=== PATIENT | female | born 1995 | race Caucasian/White ===

== ENCOUNTER → 2018-12-10 07:08 | Outpatient (CLI) | payer MEDICARE, MEDICAID, SELFPAY ==
--- NOTE | 2018-12-10 07:10 | DI.US.S_ITS ---
PROCEDURE: US OB >= 14 WEEKS FETUS INDICATIONS: ANATOMY OUTSIDE/PRIOR DATING DATA: Last menstrual period (LMP): Unknown. LMP-based estimated date of delivery (SONIA): Unknown. First dating scan (date and location): 09/05/2018. Estimated date of delivery (SONIA) from first dating scan: 05/01/2019. TECHNIQUE: Real-time scanning was performed of the fetus, with image documentation and biometric measurements. COMPARISON: Ultrasound 09/05/2018. FINDINGS: General: A single living intrauterine gestation is present. Presentation: Vertex, variable. Placenta: Placental position is anterior, without previa. Amniotic fluid index: 16.2 cm, normal range is 5-24 cm. heart rate: 139 beats per minute. Maternal cervical canal: 3.5 cm long. Normal lower limit is 2.5 cm. biometrics: Biparietal diameter: 4.9 cm. 20 weeks 6/7 days. Head circumference: 18.2 cm. 20 weeks 4/7 days. Abdominal circumference: 15.5 cm. 20 weeks 5/7 days. Femur length: 3.1 cm. 19 weeks 5/7 days. Estimated gestational age from initial scan: 19 weeks 5/7 days. Composite gestational age from present scan: 20 weeks 3/7 days Estimated weight and percentile: 345 g. 79th percentile Measurement variability for biometric dating: +/- 7 days from 14 weeks to 15 weeks 6 days gestation, +/- 10 days from 16 weeks to 21 weeks 6 days gestation, +/- 2 weeks from 22 weeks to 27 weeks 6 days gestation, +/- 3 weeks for 28 weeks gestation or later. weight reference: 4500 g or EFW >90/95% is considered macrosomia or large for gestational age. EFW <10% is small for gestational age. EFW 5% or less is considered intra-uterine growth restriction. Anatomic survey: Neuro: Ventricles are non-dilated at less than 10 mm. Cisterna magna is normal at 3-11 mm. Cerebellum is normal in size and morphology. Nuchal skin fold: Normal at less than 6 mm between 14-21 weeks gestational age. Face: Nose and lips, facial profile are normal. Spine: No evidence for spina bifida. Heart: 4-chambered heart is present, with normal ventricular outflow tracts. Diaphragm: Diaphragm is intact. Stomach: Left-sided stomach is present. Kidneys: Prominent renal pelvicies. Right measures 4.1 mm. The left measures 3 mm. Normal is less than 5 mm in 2nd trimester, less than 7 mm in 3rd trimester. Cord: 3-vessel cord has orthotopic insertion. Bladder: Normal in size. Extremities: All 4 extremities identified. IMPRESSION: 1. Esqueda living intrauterine at 20 weeks and 3/7 days based on today's ultrasound. This is concordant with the initial assessment. 2. Normal placenta and amniotic fluid. 3. Prominent bilateral renal pelvis. Followup ultrasound is recommended. Otherwise normal anatomic survey. Dictated by: Stevan Nunez M.D. on 12/10/2018 at 11:19 Approved by: Stevan Nunez M.D. on 12/10/2018 at 11:59
== END ==
PROVIDERS: PCP Family Medicine; Visit Provider Family Medicine
DX: Z34.82 Encounter for supervision of other normal pregnancy, second trimester (principal); Z3A.20 20 weeks gestation of pregnancy
CPT/HCPCS: 76811

== ENCOUNTER → 2019-02-04 08:34 | Outpatient (CLI) | payer MEDICARE, MEDICAID, SELFPAY ==
--- NOTE | 2019-02-04 08:38 | DI.US.S_ITS ---
PROCEDURE: US OB LIMITED INDICATIONS: FOLLOW UP RENAL PELVIECTASIS OUTSIDE/PRIOR DATING DATA: First dating scan (date and location): 09/05/18. Estimated date of delivery (SONIA) from first dating scan: 05/01/19. TECHNIQUE: Real-time scanning was performed of the fetus, with image documentation. Endovaginal scanning: Not needed for this study COMPARISON: [facility], [facility], 12/26/2014, 12:33. [facility], 12/11/2014, 14:07. FINDINGS: A single living intrauterine gestation is present. Presentation: Breech. Placenta: Placental position is anterior, without previa. Amniotic fluid index: 13.8 cm, normal range is 5-24 cm. heart rate: 133 beats per minute. Maternal cervical canal: 3.5 cm long. Normal lower limit is 2.5 cm. Estimated gestational age from initial scan: 27 weeks 5 days. Completion anatomic survey with normal size of the renal pelvis bilaterally. IMPRESSION: Normal size of the renal pelvis bilaterally. The delivery date is projected to be centered on 05/01/19. Dictated by: Melvin Da Silva M.D. on 02/04/2019 at 10:16 Approved by: Melvin Da Silva M.D. on 02/04/2019 at 10:18
[2019-02-04 09:21] LABS: Add Manual Diff / Slide Review NO; Basophils Absolute Auto 0 /uL (0-100); Basophils Percent Auto 0.5 % (0-2); Eosinophils Absolute Auto 300 /uL (0-450); Eosinophils Percent Auto 3.4 % (2-4); Hematocrit 33.6 % (36-46); Hemoglobin 11.5 g/dL (12.0-16.0); Lymphocytes Absolute Auto 1800 /uL (1100-4500); Lymphocytes Percent Auto 18.9 % (25-40); Mean Corpuscular HGB Conc 34.2 % (30-36); Mean Corpuscular Hemoglobin 31.7 PG (26-34); Mean Corpuscular Volume 92.9 fL (80-100); Monocytes Absolute Auto 700 /uL (0-900); Neutrophils Absolute Auto 6800 /uL (1500-7000); Neutrophils Percent Auto 70.2 % (50-75); Platelet Count 218 X10^3/uL (150-400); Red Blood Cell Count 3.62 X10^6/uL (4.0-5.2); Red Cell Distribution Width 13.9 % (11.6-14.8); White Blood Cell Count 9.7 X10^3/uL (4.5-11.0)
[2019-02-04 10:32] LABS: Appearance Urine UA CLEAR; Bilirubin Urine UA NEGATIVE (NEGATIVE); Color Urine UA YELLOW; Glucose Urine UA NEGATIVE (Negative); Ketones Urine UA NEGATIVE (NEGATIVE); Leukocyte Esterase Urine UA NEGATIVE (NEGATIVE); Nitrite Urine UA NEGATIVE (Negative); Occult Blood Urine UA NEGATIVE (Negative); Protein Urine UA TRACE (Negative); Urobilinogen Urine UA 0.2 E.U./dL (0.2)
[2019-02-04 10:36] LABS: pH Urine UA 6.5 (4.5-8.0)
[2019-02-04 11:28] LABS: GTT (PREG) 1 Hour PP 50gm Dose 204 mg/dL (76-139)
[2019-02-04 17:13] LABS: HIV 1 & 2 Ab/Ag 4th Gen Combo NEGATIVE (NEGATIVE); Hep C Virus Ab w/Reflex Quant NEGATIVE s/c (NEGATIVE); Hepatitis B Surface Antigen NEGATIVE s/c (NEGATIVE); Rubella Antibody IgG 15.4 IU/mL (>15)
[2019-02-06 14:15] LABS: Varicella IgG Antibody < 135.00 Index (< 135.00)
[2019-02-06 20:11] LABS: RPR Screen Nonreactive (Nonreactive)
== END ==
PROVIDERS: PCP Family Medicine; Visit Provider Family Medicine
DX: O26.832 Pregnancy related renal disease, second trimester (principal); N28.89 Other specified disorders of kidney and ureter; Z3A.27 27 weeks gestation of pregnancy
CPT/HCPCS: 36415; 76815; 80055; 81003; 82950; 86787; 86803; 86850; 86900; 86901; 87077; 87086; 87389

== ENCOUNTER 2019-03-11 14:05 | Outpatient (CLI) | payer MEDICARE, MEDICAID, SELFPAY ==
--- NOTE | 2019-03-11 14:12 | DI.US.S_ITS ---
PROCEDURE: US OB LIMITED INDICATIONS: XI OUTSIDE/PRIOR DATING DATA: Last menstrual period (LMP): Unknown. LMP-based estimated date of delivery (SONIA): Unknown. First dating scan (date and location): 09/05/2018 [facility]. Estimated date of delivery (SONIA) from first dating scan: 05/01/2019. TECHNIQUE: Real-time scanning was performed of the fetus, with image documentation. Endovaginal scanning: Not performed. COMPARISON: [facility], OB LIMITED, 02/04/2019, 9:08. FINDINGS: A single living intrauterine gestation is present. Presentation: Vertex. Placenta: Placental position is anterior, without previa. Amniotic fluid index: 12.5 cm cm, normal range is 5-24 cm. Deepest pocket 5.5 cm. heart rate: 135 beats per minute. Estimated gestational age from initial scan: 32 weeks 5 days. chest, stomach, kidneys, urinary bladder are unremarkable. IMPRESSION: 1. Esqueda living intrauterine at 32 weeks 5/7 days based on prior ultrasound. 2. Normal XI 12.5 cm. Normal placenta. Dictated by: Stevan Nunez M.D. on 03/11/2019 at 15:15 Approved by: Stevan Nunez M.D. on 03/11/2019 at 15:20
--- NOTE | 2019-03-11 15:04 | PM.OBTRLD ---
Visit Information Visit Information Date of evaluation: 03/11/19 Primary OB Provider: Radha Little Reason for Evaluation: Yes non-stress test Vital Signs Vital Signs: Temperature 36.2? blood pressure 109/67 heart rate 86 PFSH Medical History (Updated 03/11/19 @ 15:06 by Radha Little DO) Acne (Chronic ~2008) ADHD (Chronic ~2006) Anxiety (Chronic ~2011) Chronic back pain (Chronic ~2011) Depression (Chronic ~2011) Fibromyalgia (Chronic ~2018) Fractures (Resolved ~2015) History of bipolar disorder (Chronic ~2011) Lymphoma (Inactive ~2006) Post traumatic stress disorder (PTSD) (Chronic ~2011) Prediabetes (Chronic ~2018) Pulmonary fibrosis (Chronic ~2007) Suicide attempt (Acute) Surgical History Anesthesia (Resolved) History of ankle surgery (Resolved ~2015) History of hand surgery (Resolved ~2016) History of neck surgery (Resolved ~2006) Status post delivery Social History marital status: unmarried,living together Smoking Status: Former smoker alcohol intake: former substance use type: marijuana and other (past use of mushrooms, meth, heroin, cocaine, everything) Evaluation Evaluation Baseline heart rate: 130 Variability: Moderate (11-25) monitor accelerations: Present monitor decelerations: Absent Category of Tracing: I Diagnosis, Plan/Disposition Final Diagnosis (1) 32 weeks gestation of : Current Visit: Yes Status: Acute (2) Gestational diabetes: Current Visit: Yes Status: Acute Plan/Disposition Plan: 23-year-old at 32 weeks gestation with uncontrolled gestational diabetes. Starting metformin today. NST reactive today. XI 12.6. Needs twice weekly NST with weekly XI. Follow-up as scheduled in clinic. OB Disposition: home
== END 2019-03-11 15:15 | disposition home or self-care (01) ==
LOC: OB 03-12 15:20
PROVIDERS: PCP Family Medicine; Visit Provider Family Medicine
DX: O24.419 Gestational diabetes mellitus in pregnancy, unspecified control (principal); Z3A.32 32 weeks gestation of pregnancy
CPT/HCPCS: 59025; 76815; G0378; G0379

== ENCOUNTER 2019-03-14 12:56 | Outpatient (CLI) | payer MEDICARE, MEDICAID, SELFPAY ==
--- NOTE | 2019-03-14 13:29 | DI.US.S_ITS ---
PROCEDURE: US OB LIMITED INDICATIONS: XI TECHNIQUE: Real-time scanning was performed of the fetus, with image documentation. COMPARISON: [facility], , US OB LIMITED, 03/11/2019, 14:32. [facility], , US OB LIMITED, 02/04/2019, 9:08. [facility] Ultrasound, US, US OB < 14 WEEKS + OB TRANSVAG, 09/05/2018, 13:46. FINDINGS: A single living intrauterine gestation is present. Presentation: Cephalic Placenta: Placental position is anterior Amniotic fluid index: 16.4 cm heart rate: 140 beats per minute. Maternal cervical canal: Not evaluated Estimated gestational age from initial scan: 33 weeks 1 day. IMPRESSION: 1. Single intrauterine . 2. XI: 16.4 cm. Dictated by: Jr Harrell M.D. on 03/14/2019 at 14:22 Approved by: Jr Harrell M.D. on 03/14/2019 at 14:23
--- NOTE | 2019-03-14 14:13 | PM.OBTRLD ---
Visit Information Visit Information Date of evaluation: 03/14/19 Primary OB Provider: Radha Little Reason for Evaluation: Yes non-stress test non-stress test reason: diabetes Vital Signs Vital Signs: Temperature 36.4? blood pressure 122/60 heart rate 89 PFSH Medical History (Updated 03/14/19 @ 17:06 by Radha Little DO) Acne (Chronic ~2008) ADHD (Chronic ~2006) Anxiety (Chronic ~2011) Chronic back pain (Chronic ~2011) Depression (Chronic ~2011) Fibromyalgia (Chronic ~2018) Fractures (Resolved ~2015) History of bipolar disorder (Chronic ~2011) Lymphoma (Inactive ~2006) Post traumatic stress disorder (PTSD) (Chronic ~2011) Prediabetes (Chronic ~2018) Pulmonary fibrosis (Chronic ~2007) Suicide attempt (Acute) Surgical History Anesthesia (Resolved) History of ankle surgery (Resolved ~2015) History of hand surgery (Resolved ~2016) History of neck surgery (Resolved ~2006) Status post delivery Social History marital status: unmarried,living together Smoking Status: Former smoker alcohol intake: former substance use type: marijuana and other (past use of mushrooms, meth, heroin, cocaine, everything) Evaluation Evaluation Baseline heart rate: 130 Variability: Moderate (11-25) monitor accelerations: Present monitor decelerations: Absent Category of Tracing: I Diagnosis, Plan/Disposition Final Diagnosis (1) Gestational diabetes: Current Visit: No Status: Acute (2) 33 weeks gestation of : Current Visit: No Status: Acute Plan/Disposition Plan: Reactive NST done for GDM A2. XI 16. Continue NST twice a week in XI weekly. OB Disposition: home
== END 2019-03-14 14:14 | disposition home or self-care (01) ==
LOC: OB 03-15 11:47
PROVIDERS: PCP Family Medicine; Visit Provider Family Medicine
DX: O24.415 Gestational diabetes mellitus in pregnancy, controlled by oral hypoglycemic drugs (principal); Z3A.33 33 weeks gestation of pregnancy
CPT/HCPCS: 59025; 76815; G0378; G0379

== ENCOUNTER 2019-03-18 13:22 | Outpatient (CLI) | payer MEDICARE, MEDICAID, SELFPAY ==
--- NOTE | 2019-03-18 13:33 | DI.US.S_ITS ---
PROCEDURE: US OB LIMITED INDICATIONS: XI OUTSIDE/PRIOR DATING DATA: Last menstrual period (LMP): Unknown. LMP-based estimated date of delivery (SONIA): Unknown. First dating scan (date and location): 09/05/2018 [facility]. Estimated date of delivery (SONIA) from first dating scan: 05/01/2019. TECHNIQUE: Real-time scanning was performed of the fetus, with image documentation. COMPARISON: [facility], OB LIMITED, 03/11/2019, 14:32. [facility], OB LIMITED, 03/14/2019, 13:46. FINDINGS: A single living intrauterine gestation is present. Presentation: Vertex. Placenta: Placental position is anterior, without previa. Amniotic fluid index: 15.9 cm, (previously measured at 16.4 cm) normal range is 5-24 cm. Largest pocket 4.8 cm. heart rate: 130 beats per minute. Maternal cervical canal: 3.7 cm long. Normal lower limit is 2.5 cm. No funneling. Estimated gestational age from initial scan: 33 weeks 5 days. IMPRESSION: 1. Esqueda living intrauterine at 33 weeks 5/7 days based on prior ultrasound. 2. Normal placenta and amniotic fluid. XI 15.9 cm is not significantly changed. Dictated by: Stevan Nunez M.D. on 03/18/2019 at 16:57 Approved by: Stevan Nunez M.D. on 03/18/2019 at 17:01
--- NOTE | 2019-03-18 14:01 | PM.OBTRLD ---
Visit Information Visit Information Date of evaluation: 03/18/19 Primary OB Provider: Radha Little Reason for Evaluation: Yes non-stress test non-stress test reason: diabetes Vital Signs Vital Signs: Temperature 36.1? blood pressure 118/68 heart rate 90 PFS Medical History (Updated 03/18/19 @ 14:03 by Radha Little DO) Acne (Chronic ~2008) ADHD (Chronic ~2006) Anxiety (Chronic ~2011) Chronic back pain (Chronic ~2011) Depression (Chronic ~2011) Fibromyalgia (Chronic ~2018) Fractures (Resolved ~2015) History of bipolar disorder (Chronic ~2011) Lymphoma (Inactive ~2006) Post traumatic stress disorder (PTSD) (Chronic ~2011) Prediabetes (Chronic ~2018) Pulmonary fibrosis (Chronic ~2007) Suicide attempt (Acute) Surgical History Anesthesia (Resolved) History of ankle surgery (Resolved ~2015) History of hand surgery (Resolved ~2016) History of neck surgery (Resolved ~2006) Status post delivery Social History marital status: unmarried,living together Smoking Status: Former smoker alcohol intake: former substance use type: marijuana and other (past use of mushrooms, meth, heroin, cocaine, everything) Evaluation Evaluation Baseline heart rate: 130 Variability: Moderate (11-25) monitor accelerations: Present monitor decelerations: Absent Diagnosis, Plan/Disposition Final Diagnosis (1) 33 weeks gestation of : Current Visit: No Status: Acute (2) GDM, class A2: Current Visit: Yes Status: Acute Plan/Disposition Plan: Reactive NST for GDM A2. XI 15.5. Continue weekly XI and twice weekly NST.
== END 2019-03-18 15:14 | disposition home or self-care (01) ==
LOC: LABOR 15:07 → OB 03-21 09:55
PROVIDERS: PCP Family Medicine; Visit Provider Family Medicine
DX: O24.419 Gestational diabetes mellitus in pregnancy, unspecified control (principal); O99.333 Smoking (tobacco) complicating pregnancy, third trimester; Z3A.33 33 weeks gestation of pregnancy
CPT/HCPCS: 59025; 76815; G0378; G0379

== ENCOUNTER 2019-03-21 13:04 | Outpatient (CLI) | payer MEDICARE, MEDICAID, SELFPAY ==
--- NOTE | 2019-03-21 13:38 | PM.OBTRLD ---
Visit Information Visit Information Date of evaluation: 03/21/19 Primary OB Provider: Radha Little Reason for Evaluation: Yes non-stress test non-stress test reason: diabetes Vital Signs Vital Signs: Temperature 36.0? blood pressure 105/68 heart rate 93 PFSH Medical History (Updated 03/21/19 @ 13:51 by Radha Little DO) Acne (Chronic ~2008) ADHD (Chronic ~2006) Anxiety (Chronic ~2011) Chronic back pain (Chronic ~2011) Depression (Chronic ~2011) Fibromyalgia (Chronic ~2018) Fractures (Resolved ~2015) History of bipolar disorder (Chronic ~2011) Lymphoma (Inactive ~2006) Post traumatic stress disorder (PTSD) (Chronic ~2011) Prediabetes (Chronic ~2018) Pulmonary fibrosis (Chronic ~2007) Suicide attempt (Acute) Surgical History Anesthesia (Resolved) History of ankle surgery (Resolved ~2015) History of hand surgery (Resolved ~2016) History of neck surgery (Resolved ~2006) Status post delivery Social History marital status: unmarried,living together Smoking Status: Former smoker alcohol intake: former substance use type: marijuana and other (past use of mushrooms, meth, heroin, cocaine, everything) Evaluation Evaluation Baseline heart rate: 130 Variability: Moderate (11-25) monitor accelerations: Present monitor decelerations: Absent Diagnosis, Plan/Disposition Final Diagnosis (1) 34 weeks gestation of : Current Visit: Yes Status: Acute (2) GDM, class A2: Current Visit: No Status: Acute Plan/Disposition Plan: Reactive NST for GDM A2. Continue twice weekly NST and XI weekly. OB Disposition: home
== END 2019-03-21 13:56 | disposition home or self-care (01) ==
LOC: LABOR 13:19 → OB 03-22 09:54
PROVIDERS: Admitting Provider Family Medicine; PCP Family Medicine; Visit Provider Family Medicine
DX: O24.415 Gestational diabetes mellitus in pregnancy, controlled by oral hypoglycemic drugs (principal); Z3A.34 34 weeks gestation of pregnancy
CPT/HCPCS: 59025; G0378; G0379

== ENCOUNTER 2019-03-26 14:12 | Outpatient (CLI) | payer MEDICARE, MEDICAID, SELFPAY ==
--- NOTE | 2019-03-26 14:18 | DI.US.S_ITS ---
PROCEDURE: US OB LIMITED INDICATIONS: XI OUTSIDE/PRIOR DATING DATA: Last menstrual period (LMP): Unknown. LMP-based estimated date of delivery (SONIA): Not applicable. First dating scan (date and location): 09/05/18. Estimated date of delivery (SONIA) from first dating scan: 05/01/2019. TECHNIQUE: Real-time scanning was performed of the fetus, with image documentation. Endovaginal scanning: Deferred COMPARISON: [facility], OB LIMITED, 03/18/2019, 15:03. FINDINGS: A single living intrauterine gestation is present. Presentation: Vertex. Placenta: Placental position is anterior, without previa. Amniotic fluid index: 15.4 cm, normal range is 5-24 cm. deepest pocket is 5.4 cm. heart rate: 133 beats per minute. Maternal cervical canal: Not seen Estimated gestational age from initial scan: 34 weeks, 6 days. IMPRESSION: 1. Single living intrauterine in vertex presentation. 2. Amniotic fluid index is 15.4 cm and the deepest pocket is 5.4 cm. This is fairly stable compared to the prior study. Dictated by: Kae Mota M.D. on 03/26/2019 at 17:51 Approved by: Kae Mota M.D. on 03/26/2019 at 17:53
--- NOTE | 2019-03-26 15:05 | PM.OBTRLD ---
Visit Information Visit Information Date of evaluation: 03/26/19 Primary OB Provider: Radha Little Reason for Evaluation: Yes non-stress test non-stress test reason: diabetes Vital Signs Vital Signs: Temp 35.8 blood pressure 111/64 heart rate 96 PFSH Social History marital status: unmarried,living together Smoking Status: Former smoker alcohol intake: former substance use type: marijuana and other (past use of mushrooms, meth, heroin, cocaine, everything) Evaluation Evaluation Baseline heart rate: 130 Variability: Moderate (11-25) monitor accelerations: Present monitor decelerations: Absent Category of Tracing: I Diagnosis, Plan/Disposition Final Diagnosis (1) 34 weeks gestation of : Current Visit: No Status: Acute (2) GDM, class A2: Current Visit: No Status: Acute Plan/Disposition Plan: Reactive NST for GDM A2. XI 15.3. Continue twice weekly NST and XI weekly. OB Disposition: home
== END 2019-03-26 15:42 | disposition home or self-care (01) ==
LOC: LABOR 14:31 → OB 04-22 09:40
PROVIDERS: PCP Family Medicine; Visit Provider Family Medicine
DX: O24.419 Gestational diabetes mellitus in pregnancy, unspecified control (principal); Z3A.34 34 weeks gestation of pregnancy
CPT/HCPCS: 59025; 76815; G0378; G0379

== ENCOUNTER 2019-03-28 13:03 | Outpatient (CLI) | payer MEDICARE, MEDICAID, SELFPAY ==
--- NOTE | 2019-03-28 13:59 | PM.OBTRLD ---
Visit Information Visit Information Date of evaluation: 03/28/19 Primary OB Provider: Radha Little Reason for Evaluation: Yes non-stress test non-stress test reason: diabetes Vital Signs Vital Signs: Temperature 36.2? blood pressure 115/68 heart rate 99 PFSH Social History marital status: unmarried,living together Smoking Status: Former smoker alcohol intake: former substance use type: marijuana and other (past use of mushrooms, meth, heroin, cocaine, everything) Evaluation Evaluation Baseline heart rate: 130 Variability: Moderate (11-25) monitor accelerations: Present monitor decelerations: Absent Diagnosis, Plan/Disposition Final Diagnosis (1) 35 weeks gestation of : Current Visit: Yes Status: Acute (2) GDM, class A2: Current Visit: No Status: Acute Plan/Disposition Plan: Reactive NST done for GDM A2. Continue twice weekly NST and once weekly XI. OB Disposition: home
== END 2019-03-28 14:00 | disposition home or self-care (01) ==
LOC: LABOR 14:14 → OB 03-29 09:19
PROVIDERS: PCP Family Medicine; Visit Provider Family Medicine
DX: O24.419 Gestational diabetes mellitus in pregnancy, unspecified control (principal); Z3A.35 35 weeks gestation of pregnancy
CPT/HCPCS: 59025; G0378; G0379

== ENCOUNTER 2019-04-04 13:02 | Outpatient (CLI) | payer MEDICARE, MEDICAID, SELFPAY ==
--- NOTE | 2019-04-04 13:20 | DI.US.S_ITS ---
PROCEDURE: US OB >= 14 WEEKS FETUS INDICATIONS: XI OUTSIDE/PRIOR DATING DATA: Last menstrual period (LMP): Not available. LMP-based estimated date of delivery (SONIA): Not available. First dating scan (date and location): 09/05/18. Estimated date of delivery (SONIA) from first dating scan: 05/01/19. TECHNIQUE: Real-time scanning was performed of the fetus, with image documentation and biometric measurements. Endovaginal scanning: Not needed COMPARISON: [facility], OB >= 14 WEEKS FETUS, 12/10/2018, 7:23. FINDINGS: General: A single living intrauterine gestation is present. Presentation: Vertex. Placenta: Placental position is anterior, without previa. Amniotic fluid index: 16.3 cm, normal range is 5-24 cm. heart rate: 143 beats per minute. IMPRESSION: Limited study at clinician request, for XI. The XI is currently normal at 16.3 cm. The delivery date is projected to be centered on 05/01/19. Dictated by: Melvin Da Silva M.D. on 04/04/2019 at 16:02 Approved by: Melvin Da Silva M.D. on 04/04/2019 at 16:04
--- NOTE | 2019-04-04 17:05 | PM.OBTRLD ---
Visit Information Visit Information Date of evaluation: 04/04/19 Primary OB Provider: Radha Little Reason for Evaluation: Yes non-stress test non-stress test reason: diabetes Vital Signs Vital Signs: Temperature 36.1? blood pressure 105/67 heart rate 83 PFSH Social History marital status: unmarried,living together Smoking Status: Former smoker alcohol intake: former substance use type: marijuana and other (past use of mushrooms, meth, heroin, cocaine, everything) Evaluation Evaluation Baseline heart rate: 130 Variability: Moderate (11-25) monitor accelerations: Present monitor decelerations: Absent Diagnosis, Plan/Disposition Final Diagnosis (1) 36 weeks gestation of : Current Visit: No Status: Acute (2) GDM, class A2: Current Visit: No Status: Acute Plan/Disposition Plan: Reactive NST for GDM A2. XI 16.3. Continue weekly XI in twice weekly NST. OB Disposition: home
== END 2019-04-04 13:51 | disposition home or self-care (01) ==
LOC: OB 04-05 11:19
PROVIDERS: PCP Family Medicine; Visit Provider Family Medicine
DX: O24.415 Gestational diabetes mellitus in pregnancy, controlled by oral hypoglycemic drugs (principal); Z3A.36 36 weeks gestation of pregnancy
CPT/HCPCS: 59025; 76811; G0378; G0379

== ENCOUNTER 2019-04-08 12:50 | Outpatient (CLI) | payer MEDICARE, MEDICAID, SELFPAY ==
--- NOTE | 2019-04-08 13:10 | PM.OBTRLD ---
Visit Information Visit Information Date of evaluation: 04/08/19 Primary OB Provider: Radha Little Reason for Evaluation: Yes non-stress test non-stress test reason: diabetes Vital Signs Vital Signs: Temperature 35.9? blood pressure 108/72 heart rate 96 PFSH Social History marital status: unmarried,living together Smoking Status: Former smoker alcohol intake: former substance use type: marijuana and other (past use of mushrooms, meth, heroin, cocaine, everything) Evaluation Evaluation Baseline heart rate: 130 Variability: Moderate (11-25) monitor accelerations: Present monitor decelerations: Absent Category of Tracing: I Diagnosis, Plan/Disposition Final Diagnosis (1) 36 weeks gestation of : Current Visit: No Status: Acute (2) GDM, class A2: Current Visit: No Status: Acute Plan/Disposition Plan: Reactive NST for GDM A2. Ultrasound later this week for growth which will include XI for the week. OB Disposition: home
== END 2019-04-08 13:30 | disposition home or self-care (01) ==
LOC: OB 04-09 11:22
PROVIDERS: PCP Family Medicine; Referring Provider Family Medicine; Visit Provider Family Medicine
DX: O24.419 Gestational diabetes mellitus in pregnancy, unspecified control (principal); Z3A.36 36 weeks gestation of pregnancy
CPT/HCPCS: 59025; 87653; G0378; G0379

== ENCOUNTER → 2019-04-08 13:45 | Outpatient (CLI) | payer MEDICARE, MEDICAID, SELFPAY ==
[2019-04-09 13:36] LABS: Strep Grp B PCR NEG for Grp B Strep
== END ==
PROVIDERS: PCP Family Medicine; Visit Provider Family Medicine
DX: Z3A.36 36 weeks gestation of pregnancy (principal)
CPT/HCPCS: 87653

== ENCOUNTER → 2019-04-11 13:07 | Outpatient (CLI) | payer MEDICARE, MEDICAID, SELFPAY ==
--- NOTE | 2019-04-11 13:09 | DI.US.S_ITS ---
PROCEDURE: US OB LIMITED INDICATIONS: EFW; GESTATIONAL DIABETES OUTSIDE/PRIOR DATING DATA: Last menstrual period (LMP): Not available. LMP-based estimated date of delivery (SONIA): Not available. First dating scan (date and location): 09/05/18. Estimated date of delivery (SONIA) from first dating scan: 05/01/19. TECHNIQUE: Real-time scanning was performed of the fetus, with image documentation and biometric measurements. Endovaginal scanning: Not needed COMPARISON: [facility], OB LIMITED, 03/26/2019, 14:38. [facility], OB LIMITED, 03/18/2019, 15:03. FINDINGS: General: A single living intrauterine gestation is present. Presentation: Vertex. Placenta: Placental position is right anterior, without previa. Amniotic fluid index: 19.9 cm, normal range is 5-24 cm. heart rate: 140 beats per minute. biometrics: Biparietal diameter: 9.5 cm, 38 weeks 4 days Head circumference: 35.3 cm, 41 weeks 1 day Abdominal circumference: 35.4 cm, 39 weeks 2 days Femur length: 7.4 cm, 37 weeks 5 days Estimated gestational age from initial scan: 37 weeks 1 day Composite gestational age from present scan: 39 weeks 1 day Estimated weight and percentile: 3680 g, the upper 94th percentile Measurement variability for biometric dating: +/- 7 days from 14 weeks to 15 weeks 6 days gestation, +/- 10 days from 16 weeks to 21 weeks 6 days gestation, +/- 2 weeks from 22 weeks to 27 weeks 6 days gestation, +/- 3 weeks for 28 weeks gestation or later. weight reference: 4500 g or EFW >90/95% is considered macrosomia or large for gestational age. EFW <10% is small for gestational age. EFW 5% or less is considered intra-uterine growth restriction. Other: Not applicable. IMPRESSION: Current estimated weight is 3680 g, at the upper 94th percentile for current gestational age. Impending macrosomia. Dictated by: Melvin Da Silva M.D. on 04/11/2019 at 15:05 Approved by: Melvin Da Silva M.D. on 04/11/2019 at 15:08
== END ==
PROVIDERS: PCP Family Medicine; Referring Provider Family Medicine; Visit Provider Family Medicine
DX: O24.419 Gestational diabetes mellitus in pregnancy, unspecified control (principal); Z3A.39 39 weeks gestation of pregnancy
CPT/HCPCS: 76815

== ENCOUNTER 2019-04-15 10:38 | Outpatient (CLI) | payer MEDICARE, MEDICAID, SELFPAY ==
--- NOTE | 2019-04-15 10:49 | DI.US.S_ITS ---
PROCEDURE: US OB LIMITED INDICATIONS: XI OUTSIDE/PRIOR DATING DATA: Last menstrual period (LMP): Not available. LMP-based estimated date of delivery (SONIA): Not available. First dating scan (date and location): 09/05/18. Estimated date of delivery (SONIA) from first dating scan: 05/01/19.. TECHNIQUE: Real-time scanning was performed of the fetus, with image documentation. COMPARISON: [facility], OB LIMITED, 04/11/2019, 13:23. FINDINGS: A single living intrauterine gestation is present. Presentation: Vertex. Placenta: Placental position is anterior, without previa. Amniotic fluid index: 16.4 cm, normal range is 5-24 cm. heart rate: 135 beats per minute. Maternal cervical canal: Not well-seen. Estimated gestational age from initial scan: 37 weeks 5 days. IMPRESSION: Single living IUP redemonstrated and amniotic fluid index is normal. Dictated by: Stu Vargas [facility] Interpreted: Ni Rodrigues MD on 04/15/2019 at 16:10 Approved by: Ni Rodrigues MD, PhD on 04/15/2019 at 17:18
--- NOTE | 2019-04-15 11:46 | PM.OBTRLD ---
Visit Information Visit Information Date of evaluation: 04/15/19 Primary OB Provider: Radha Little Reason for Evaluation: Yes non-stress test non-stress test reason: diabetes (GDM A2) Vital Signs Vital Signs: Temperature 36.3? blood pressure 104/60 heart rate 82 PFSH Medical History (Updated 04/15/19 @ 12:03 by Radha Little DO) Acne (Chronic ~2008) ADHD (Chronic ~2006) Anxiety (Chronic ~2011) Chronic back pain (Chronic ~2011) Depression (Chronic ~2011) Fibromyalgia (Chronic ~2018) Fractures (Resolved ~2015) History of bipolar disorder (Chronic ~2011) Lymphoma (Inactive ~2006) Post traumatic stress disorder (PTSD) (Chronic ~2011) Prediabetes (Chronic ~2018) Pulmonary fibrosis (Chronic ~2007) Suicide attempt (Acute) Surgical History Anesthesia (Resolved) History of ankle surgery (Resolved ~2015) History of hand surgery (Resolved ~2016) History of neck surgery (Resolved ~2006) Status post delivery Family History Grandfather Cancer Diabetes mellitus Grandfather Liver damage Social History marital status: unmarried,living together Smoking Status: Former smoker alcohol intake: former substance use type: marijuana and other (past use of mushrooms, meth, heroin, cocaine, everything) Evaluation Evaluation Baseline heart rate: 120 Variability: Moderate (11-25) monitor accelerations: Present monitor decelerations: Absent Category of Tracing: I Diagnosis, Plan/Disposition Final Diagnosis (1) GDM, class A2: Current Visit: No Status: Acute (2) 37 weeks gestation of : Current Visit: No Status: Acute Plan/Disposition Plan: Reactive NST. XI 16.4. OB Disposition: home
== END 2019-04-15 11:56 | disposition home or self-care (01) ==
LOC: LABOR 11:42 → OB 04-16 08:12
PROVIDERS: PCP Family Medicine; Referring Provider Family Medicine; Visit Provider Family Medicine
DX: O24.419 Gestational diabetes mellitus in pregnancy, unspecified control (principal); Z3A.37 37 weeks gestation of pregnancy
CPT/HCPCS: 59025; 76815; G0378; G0379

== ENCOUNTER 2019-04-23 14:12 | Outpatient (CLI) | payer MEDICARE, MEDICAID, SELFPAY ==
--- NOTE | 2019-04-23 15:19 | PM.OBTRLD ---
Visit Information Visit Information Date of evaluation: 04/23/19 Primary OB Provider: Radha Little Reason for Evaluation: Yes non-stress test non-stress test reason: diabetes Vital Signs Vital Signs: T 97.6 BP 121/76 HR 90 PFSH Social History marital status: unmarried,living together Smoking Status: Former smoker alcohol intake: former substance use type: marijuana and other (past use of mushrooms, meth, heroin, cocaine, everything) Evaluation Evaluation Baseline heart rate: 125 Variability: Moderate (11-25) monitor accelerations: Present monitor decelerations: Absent Diagnosis, Plan/Disposition Final Diagnosis (1) 38 weeks gestation of : Current Visit: No Status: Acute (2) GDM, class A2: Current Visit: No Status: Acute Plan/Disposition Plan: Reative NST. scheduled in 2 days. OB Disposition: home
== END 2019-04-23 14:50 | disposition home or self-care (01) ==
LOC: OB 04-24 10:32
PROVIDERS: PCP Family Medicine; Referring Provider Family Medicine; Visit Provider Family Medicine
DX: O24.415 Gestational diabetes mellitus in pregnancy, controlled by oral hypoglycemic drugs (principal); Z3A.38 38 weeks gestation of pregnancy
CPT/HCPCS: 59025; G0378; G0379

== ENCOUNTER 2019-04-25 05:28 | Inpatient (IN) | payer MEDICARE, MEDICAID, SELFPAY ==
[2019-04-25] VITALS (7 sets, daily range): BP systolic 113–122; BP diastolic 68–86; PULSE 73–76; RESP 12–16; TEMP 36.6–36.8; O2SAT 98–100
--- NOTE | 2019-04-25 | PATH_ITS ---
[facility] Accession Number: [id number] . 01 Material submitted: . fallopian tube - BILATERAL FALLOPIAN TUBES . 01 Clinical history: . LOW TRANSVERSE W/BTL . 02 Diagnosis: Bilateral Fallopian Tubes, Bilateral Tubal Ligation: Two segments of fallopian tube. No evidence of neoplasm. MRV 04/29/2019 1055 Local . 02 Electronically signed: . Satish Noriega MD, PhD, Pathologist NPI- [id number] . 01 Gross description: . Received in one formalin-filled container, labeled with the patient's name and labeled bilateral fallopian tubes, are two non-fimbriated, cylindrical-shaped portions of tissue. The first measures 1.4 x 0.5 x 0.5 cm; sectioned into four pieces and entirely submitted in cassette A1. The second piece measures 1.4 x 0.6 x 0.5 cm; sectioned into four pieces and entirely submitted in cassette A2. ([id number]) /[facility] 04/26/2019 0237 Local . 02 Microscopic: . Complete cross-sections of fallopian tube are seen in each cylindrical structure submitted. . 02 Pathologist provided ICD-10: Z30.2 . 02 CPT . 611610 Performed at: 01 [facility] [address] [facility], [place], [place] [id number] MD Westley Jones MD Phone: [phone] Performed at: 02 [facility] [address] [place], [place] [id number] MD Angela Barrios MD Phone: [phone]
[2019-04-25] MEDS: LACTATED RINGERS 1,000 ML 42 ML IV (06:06)
[2019-04-25 06:31] LABS: Add Manual Diff / Slide Review NO; Basophils Absolute Auto 100 /uL (0-100); Basophils Percent Auto 1.2 % (0-2); Eosinophils Absolute Auto 100 /uL (0-450); Eosinophils Percent Auto 0.6 % (2-4); Hematocrit 32.4 % (36-46); Hemoglobin 10.9 g/dL (12.0-16.0); Lymphocytes Absolute Auto 1700 /uL (1100-4500); Lymphocytes Percent Auto 17.6 % (25-40); Mean Corpuscular HGB Conc 33.7 % (30-36); Mean Corpuscular Hemoglobin 29.4 PG (26-34); Mean Corpuscular Volume 87.1 fL (80-100); Monocytes Absolute Auto 700 /uL (0-900); Monocytes Percent Auto 6.7 % (3-14); Neutrophils Absolute Auto 7400 /uL (1500-7000); Neutrophils Percent Auto 73.9 % (50-75); Platelet Count 234 X10^3/uL (150-400); Red Blood Cell Count 3.72 X10^6/uL (4.0-5.2); Red Cell Distribution Width 14.4 % (11.6-14.8)
--- NOTE | 2019-04-25 06:35 | P.HPOB_ITS ---
OB HPI Date/Time Date of admission: 04/25/19 Date Patient Seen: 04/25/19 Time Patient Seen: 06:45 History of Present Condition Chief complaint: [id number] LOW TRANSVERSE W/BTL : 2 Para: 2 Estimated Date of Delivery: 05/01/19 Estimated Gestational Age (weeks): 39w1d Narrative: Hilary Cohen is a 24 year old at 39 weeks and 1 day here for repeat . complicated by GDM A2 on metformin with good blood sugar control and daily marijuana use. Patient also has a h/o lymphoma as a child, depression, anxiety, PTSD and polysubstance abuse. No substance abuse other than marijuana this and mental health has been stable. She has 3 year old twins and desires permanent sterilization with bilateral tubal ligation with her repeat . Indications Operative indications ( section): previous uterine surgery History of Present care: good care, initiated at week # (21.5w transfer of care from [facility]), number of visits (9) and pounds weight gain (10) Dating criteria: based on 1st trimester US only Ultrasounds: normal mid trimester US Abnormal ultrasound findings: Mild pyelectasis which resolved on follow up imaging, EFW 94% at 37 weeks. Normal XI on week US starting at 32 weeks for GDM A2 Obstetrical complications: gestational diabetes (GDM A2) Preadmission Labs Blood type: O (+) positive -: Antibody screen: negative, GBS status: negative, HBsAG: negative, HIV: negative and RPR/VDLR: negative -: Chlamydia screen: not detected and Gonorrhea screen: not detected -: Rubella: immune and Varicella: not immune HCT: 33.6 HCAB: negative Quad screen: Normal Urine: Lactobaccillus 1 hr GTT: 204 Prior (ies) History: Twins 01/11/2015 38 weeks, primarily for twins, 6 lbs 9 oz female, 6 lbs 5 oz male Evaluation Evaluation Baseline heart rate: 130 Variability: Moderate (11-25) monitor accelerations: Present monitor decelerations: Absent Category of Tracing: I Laboratory results: Laboratory Tests 04/25/19 06:10 WBC 10.0 RBC 3.72 L Hgb 10.9 L Hct 32.4 L MCV 87.1 MCH 29.4 MCHC 33.7 RDW 14.4 Plt Count 234 Neut % (Auto) 73.9 Lymph % (Auto) 17.6 L [place] % (Auto) 6.7 Eos % (Auto) 0.6 L Baso % (Auto) 1.2 Neut # (Auto) 7400 H Lymph # (Auto) 1700 [place] # (Auto) 700 Eos # (Auto) 100 Baso # (Auto) 100 PFSH Medical History Acne (Chronic ~2008) ADHD (Chronic ~2006) Anxiety (Chronic ~2011) Chronic back pain (Chronic ~2011) Depression (Chronic ~2011) Fibromyalgia (Chronic ~2018) Fractures (Resolved ~2015) History of bipolar disorder (Chronic ~2011) Lymphoma (Inactive ~2006) Post traumatic stress disorder (PTSD) (Chronic ~2011) Prediabetes (Chronic ~2018) Pulmonary fibrosis (Chronic ~2007) Suicide attempt (Acute) Surgical History Anesthesia (Resolved) History of ankle surgery (Resolved ~2015) History of hand surgery (Resolved ~2016) History of neck surgery (Resolved ~2006) Status post delivery Family History Grandfather Cancer Diabetes mellitus Grandfather Liver damage Social History marital status: unmarried,living together Smoking Status: Current every day smoker alcohol intake: former substance use type: marijuana and other (past use of mushrooms, meth, heroin, cocaine, everything) Meds Home Medications and Allergies Home Medications Medication Instructions Recorded Confirmed Type prenat.vits,jessica,biv-jtmu-pkvmh 1 tab PO DAILY 12/24/18 04/25/19 History blood-glucose meter #1 each 02/25/19 04/25/19 Rx metformin 500 mg tablet 500 mg PO BID #60 tab 02/25/19 04/25/19 Rx blood sugar diagnostic #100 each 04/23/19 04/25/19 Rx Allergies Allergy/AdvReac Type Severity Reaction Status Date / Time latex [LATEX] Allergy Mild ITCHY Verified 04/25/19 06:05 shellfish derived Allergy Mild ITCHY Verified 04/25/19 06:05 [SHELLFISH DERIVED] Review of Systems Constitutional Constitutional: Denies fatigue and Denies fever(s) Cardiovascular Cardiovascular: Denies leg swelling and Denies shortness of breath Respiratory Respiratory: Denies cough and Denies dyspnea Gastrointestinal Gastrointestinal: Denies abdominal pain and Denies change in bowel habits Genitourinary Genitourinary: Denies vaginal discharge, Denies vaginal odor and Denies pelvic pain Endocrine Endocrine: Denies fatigue Exam Vital Signs (past 8 hours): - 04/25/19 05:46 Blood Pressure 113/68 Const General: healthy appearing and comfortable HENOK Head: normal to inspection Ears: hearing grossly normal bilaterally Nose: external nose normal Face and sinus: normal facial exam Mouth: oral mucosae normal Eyes General: appearance normal, both eyes and all related structures Neck Neck: normal visual inspection Resp Effort & Inspection: normal respiratory effort Auscultation: clear to auscultation bilaterally Cardio Rate: regular rate Rhythm: regular rhythm Heart Sounds: no murmurs GI Other: Gravid Back/Spine/Pelvis Back: normal to inspection Skin General: no rashes or lesions noted Extrem General: normal to inspection and no pedal edema Objective Labs Result Diagrams: 04/25/19 06:10 Labs: Laboratory Results - last 24 hr 04/25/19 06:10 WBC 10.0 RBC 3.72 L Hgb 10.9 L Hct 32.4 L MCV 87.1 MCH 29.4 MCHC 33.7 RDW 14.4 Plt Count 234 Neut % (Auto) 73.9 Lymph % (Auto) 17.6 L [place] % (Auto) 6.7 Eos % (Auto) 0.6 L Baso % (Auto) 1.2 Neut # (Auto) 7400 H Lymph # (Auto) 1700 [place] # (Auto) 700 Eos # (Auto) 100 Baso # (Auto) 100 Assessment and Plan Assessment and Plan Assessment and Plan narrative: Patient is a 24 year old at 39 weeks and 1 day gestation here for repeat and bilateral tubal ligation. complicated by GDM A2 on metformin and daily marijuana use. Fasting blood sugar was 80 this morning. Patient counseled on risks of surgery including bleeding, risk of infection, risk of injury to surrounding organs (specifically bladder and bowel). She is a lso consented for bilateral tubal ligation and understands that sterilization is considered permanent. State consent form signed greater than 4 weeks prior to due date. Will proceed with repeat with bilateral tubal ligation. Ancef 2 g prior to surgery.
--- NOTE | 2019-04-25 07:17 | PM.PREOP ---
Pre-operative Note Interval Note History & Physical reviewed/Exam performed by Physician: Yes Changes to H&P: No
[2019-04-25] MEDS: CEFAZOLIN 2 GM/100 ML FROZ.PIGGY IV (09:52)
--- NOTE | 2019-04-25 10:07 | SUR.OPER ---
Supine on Padded OR bed, head on pillow, safety belt at thigh, arms secured on padded arm boards at <90 degrees abduction. Bump under right buttock. Legs uncrossed with pillow under knees, gel pad to heels, tape over blanket to lower legs.
--- NOTE | 2019-04-25 10:26 | SUR.OPER ---
VIABLE MALE INFANT DELIVERED AT 1020. PLACENTA AND CORD BLOOD TO OB WITH OB RN.
--- NOTE | 2019-04-25 11:09 | PM.OP.1 ---
Operative Date/Time/Diagnoses Date of procedure: 04/25/19 Time of procedure: 10:00 Pre-op diagnosis: Prior section with undesired fertility for repeat section with bilateral tubal ligation Post-op diagnosis: same Procedure & Clinicians Procedure: Repeat low transverse section Bilateral tubal ligation Same procedure as scheduled: Yes Surgeon: Radha Little Cutter Operator Asbestos Shingle: Janette Avina Anesthesia Type: Spinal Operative Notes Findings: Normal tubes, ovaries, and uterus. Viable male weighing 9 lb 1 oz Closure Type: primary Specimen(s): other (Bilateral fallopian tubes) Applied: catheter Estimated Blood Loss (mL): 500 Procedure in detail: The patient was brought to the operating room where she underwent a spinal for anesthesia. She was placed in a supine position with a left lateral tilt. A Casas catheter was placed. Pulsatile stockings were placed and functional throughout the case. 2 g of Ancef were given IV prior to the incision. Warming was in place. The patient was prepped and draped in usual sterile fashion. A low transverse incision was made with a scalpel and the incision was carried down to the fascial layer which was incised transversely with scissors. The midline attachments are superiorly and inferiorly. The rectus muscles were in the midline and the peritoneal incision was made with no damage to internal structures. The peritoneum was incised and superiorly and inferiorly. Bladder blade was placed and a bladder flap was developed and the bladder held away from the lower uterine segment. An incision was made in the uterus with the scalpel and the incision was extended with stretching. The head was elevated out of the abdomen though there was still some difficulty so a vacuum was applied. The head delivered, vacuum removed then a loose nuchal cord was reduced followed by delivery of the body. was vigorous and handed to waiting RN and RT. Cord blood was collected. The placenta delivered spontaneously with traction. The uterus was cleaned with clean laps. The uterine incision was closed in 2 layers of 0 chromic suture the first a running locking layer the second an imbricating layer. The bladder peritoneum was repaired with 2-0 Polysorb suture. The gutters were cleaned of any remaining fluids and ovaries and tubes were observed to be normal. The left fallopian tube was grasped with the Amber and segment of tube was tied off x2 with 0 plain suture. The intervening section was removed. Adequate hemostasis noted. The same procedure was performed on the opposite side. Adequate hemostasis was noted. The perineum was closed with 2-0 Polysorb suture. The fascia layer was closed with 0 Polysorb suture. The incision was closed with 3 interrupted 3-0 Polysorb sutures and then a subcuticular stitch of 4-0 Polysorb suture. Steri-Strips were placed. The uterus was massaged to remove any clots. The patient went to recovery room in good condition. Counts of instruments and sponges were correct. Complications: none Post-operative Condition: stable Disposition: PACU Plan for aftercare: Routine post- care
[2019-04-25] MEDS: OXYCODONE/ACETAMINOPHEN 5/325 TABLET 1 TAB PO ×2 (11:32→23:45)
[2019-04-25] MEDS: diphenhydrAMINE 50 MG/ML VIAL 25 MG IV (14:35)
[2019-04-25] MEDS: ONDANSETRON 4 MG/2 ML INJ IV (14:40)
[2019-04-25] MEDS: KETOROLAC 30 MG/ML VIAL IV (23:47)
[2019-04-26] MEDS: OXYCODONE/ACETAMINOPHEN 5/325 TABLET 1 TAB PO (03:45)
[2019-04-26 04:56] LABS: Hematocrit 31.2 % (36-46); Hemoglobin 10.9 g/dL (12.0-16.0)
[2019-04-26] MEDS: KETOROLAC 30 MG/ML VIAL IV (05:49)
[2019-04-26] MEDS: DOCUSATE 250 MG CAPSULE PO (08:15)
[2019-04-26] MEDS: OXYCODONE IR 5 MG TABLET PO ×3 (08:15→14:10)
[2019-04-26] MEDS: ACETAMINOPHEN 325 MG TABLET 650 MG PO ×2 (11:58→18:12)
[2019-04-26] MEDS: IBUPROFEN 600 MG TABLET PO ×2 (11:59→18:12)
--- NOTE | 2019-04-26 13:20 | PM.OBPN.1 ---
Subjective - OB Subjective Patient comments: no complaints, pain well controlled and tolerating diet baby status: doing well and nursing well feeding status: exclusively breast feeding Date Patient Seen: 04/26/19 Time Patient Seen: 13:30 Interval history: Only complaint today is some back pain which bothers her more than her abdominal pain. Ibuprofen, Tylenol and oxycodone helping. Bleeding is decreasing. Ambulating without difficultly. going very well. Exam Vital Signs (past 8 hours): Oxygen Delivery Method Room Air Temperature 98.8? blood pressure 99/62 heart rate 85 respirations 16 Narrative Exam Narrative: General: Awake and alert, no acute distress. HEENT: NCAT, EOMI, moist oral mucosa CV: Regular rate and rhythm, no murmurs, rubs or gallops Lungs: CTAB, no wheezes, rales, or rhonchi Abdomen: Aquacel dressing intact without drainage. Soft, nontender; bowel tones active; uterus firm 1 cm below umbilicus. Extremities: Warm, no edema bilaterally, 2+ pedal pulses bilaterally Objective Labs Result Diagrams: 04/26/19 04:40 Labs: Laboratory Results - last 24 hr 04/26/19 04:40 Hgb 10.9 L Hct 31.2 L Assessment & Plan Assessment and Plan (1) GDM, class A2: Status: Acute Current Visit: No (2) S/P : Status: Acute Current Visit: Yes (3) 39 weeks gestation of : Status: Acute Current Visit: Yes Plan day: 1 plan OB: routine postop care Time Spent With Patient Time: Total time spent is greater than 50% in coordination of care (as documented) at patient's floor/unit and/or counseling patient: Time with patient: less than 15 minutes
[2019-04-26 15:30] VITALS: TEMP 37.2
[2019-04-26] MEDS: OXYCODONE IR 5 MG TABLET 10 MG PO ×2 (18:13→22:18)
[2019-04-27] MEDS: ACETAMINOPHEN 325 MG TABLET 650 MG PO ×3 (00:21→13:18)
[2019-04-27] MEDS: IBUPROFEN 600 MG TABLET PO ×3 (00:21→13:18)
[2019-04-27] MEDS: OXYCODONE IR 5 MG TABLET 10 MG PO ×4 (01:20→16:00)
--- NOTE | 2019-04-27 08:51 | PM.OBDS.1 ---
Discharge Providers Provider Date of admission: 04/25/19 05:28 Discharge Date: 04/27/19 Primary care physician: Radha Little DO Consults: 04/25/19 13:09 Consult to Surgical Physician Assistant Routine Comment: Discharge provider: Radha Little DO Summary Hospital Course Date Patient Seen: 04/27/19 Time Patient Seen: 11:38 Procedures: Repeat low transverse section with bilateral tubal ligation Hospital Course: 24-year-old after uncomplicated repeat low transverse section with bilateral tubal ligation at 39 weeks and 1 day gestation. patient did well. She was eating, voiding, passing flatus and ambulating without difficulty. Breast-feeding going well. Pain well controlled with ibuprofen and oxycodone. Bleeding was light and decreasing at the time of discharge. She was eager to go home. Peripartum Data Delivery Method: Section complications: none [place] 1: Gender: Male Disposition of : home Discharge Diagnosis (1) GDM, class A2: Status: Acute (2) S/P : Status: Acute (3) 39 weeks gestation of : Status: Acute Status at Discharge Functional status at discharge: independent ambulation Overall status at discharge: patient is progressing back to baseline Time Spent with Patient Time attestation: Total time spent providing and/or coordinating discharge services: Time spent: Less than 30 minutes Objective Labs Result Diagrams: 04/26/19 04:40 Exam Vital Signs (past 8 hours): Oxygen Delivery Method Room Air Temperature 97.9? blood pressure 120/80 heart rate 81 respirations 18 Narrative Exam Narrative: General: Awake and alert, no acute distress. HEENT: NCAT, EOMI, moist oral mucosa CV: Regular rate and rhythm, no murmurs, rubs or gallops Lungs: CTAB, no wheezes, rales, or rhonchi Abdomen: Aquacel dressing intact without drainage. Soft, nontender; bowel tones active; uterus firm 1 cm below umbilicus Extremities: Warm, no edema bilaterally, 2+ pedal pulses bilaterally Discharge Plan Discharge Plan Patient Disposition: Home Discharge comment: Call for fevers, severe pain or bleeding through more than a pad an hour. Discharge orders & Medications Prescriptions: New ibuprofen 600 mg Tablet 600 mg PO Q6HR PRN (Reason: Fever/Mild Pain (1-3)) Qty: 30 RF: 0 docusate sodium 250 mg Capsule 250 mg PO DAILY Qty: 30 RF: 0 oxycodone 5 mg Tablet 5 mg PO Q4HR PRN (Reason: Pain, Moderate (4-6)) Qty: 20 RF: 0 Continued prenat.vits,jessica,dzm-medp-zzgos Tablet 1 tab PO DAILY RF: 0 Discontinued metformin 500 mg tablet 500 mg PO BID Qty: 60 RF: 3 (DME) blood-glucose meter Kit See Rx Instructions .ROUTE .MEDSUPPLY Qty: 1 RF: 0 (DME) Blood Glucose Test Strip See Rx Instructions .ROUTE .MEDSUPPLY Qty: 100 RF: 6 Follow up/Referrals: Radha Little DO [Primary Care Provider] - 05/02/19 11:15 am (Aquacel removal with Christelle before or after son's circumcision Please schedule 6 week visit as well) Visit Report/Discharge Packet Instructions: DI for Stand Alone Forms: Discharge: Care Visit Report Forms: Patient Portal/API, Stroke Signs & Symptoms Discharge Data Primary Care Provider: Radha Little
[2019-04-27] MEDS: DOCUSATE 250 MG CAPSULE PO (10:31)
== END 2019-04-27 16:37 | disposition home or self-care (01) | DRG 784 ==
PROVIDERS: Admitting Provider Family Medicine; PCP Family Medicine; Referring Provider Family Medicine; Visit Provider Family Medicine
PROC: 10D00Z1 Extraction of Products of Conception, Low, Open Approach (ICD-10-PCS; CPT 59514; principal; 2019-04-25 09:45)
DX: O34.211 Maternal care for low transverse scar from previous cesarean delivery (principal); O99.324 Drug use complicating childbirth; O24.425 Gestational diabetes mellitus in childbirth, controlled by oral hypoglycemic drugs; F12.90 Cannabis use, unspecified, uncomplicated; Z3A.39 39 weeks gestation of pregnancy; Z37.0 Single live birth; Z30.2 Encounter for sterilization
CPT/HCPCS: 36415; 58611; 59025; 59050; 59514; 59515; 85014; 85018; 85025; 86850; 86900; 86901; J0690; J1200; J1885; J2274; J2405; J2590